=== PATIENT | male | born 1975 | race Caucasian/White ===

== ENCOUNTER 2021-04-15 20:20 | Inpatient (IN) | payer OTHER, MEDICARE ==
[~2021-04-15] VITALS: Ht 188 cm; Wt 120.0 kg
[2021-04-15 20:20] VITALS: BP 118/86
--- NOTE | 2021-04-15 20:20 | NUR ---
Received patient from [facility] ER via EMS to Room 408 per cart. Admitting diagnosis: Abdominal pain, leukocytosis and tachycardia. Patient c/o abdominal and pain behind umbilicus and nausea. Patient also c/o of increased anxiety. Patient is alert and oriented x4. Patient is allergic to latex and adhesive tape. CT Scan showed possible partial SBO. Patient c/o nausea (mild) and pain level is a 2/10 at this time. Will continue to monitor.
[2021-04-15] MEDS ORDERED: OXCA600T9 PO (21:58)
[2021-04-15] MEDS ORDERED: EVOL420W2 SQ (21:58)
[2021-04-15] MEDS ORDERED: TEST200V3 IM (21:58)
[2021-04-15] MEDS ORDERED: TRAZ-123 PO (21:58)
[2021-04-15] MEDS ORDERED: INSU100V37 SQ (21:58)
[2021-04-15] MEDS ORDERED: SILD50TA PO (21:58)
[2021-04-15] MEDS ORDERED: EMPA10TA PO (21:58)
[2021-04-15] MEDS ORDERED: MULT-245 PO (21:58)
[2021-04-15] MEDS ORDERED: OXCA300T19 PO (21:58)
[2021-04-15] MEDS ORDERED: BUPR150T21 PO (21:58)
[2021-04-15] MEDS ORDERED: INUL2TAB4 PO (21:58)
[2021-04-15] MEDS ORDERED: TIMO5DRO5 EACHEYE (21:58)
[2021-04-15] MEDS ORDERED: LORA0.5T96 PO ×2 (21:58)
[2021-04-15] MEDS ORDERED: oxyCODONE IR 5 MG TABLET PO PRN (22:15)
[2021-04-15] MEDS ORDERED: ZOLPIDEM 5 MG TABLET. PO PRN (22:15)
[2021-04-15] MEDS ORDERED: LIDO:MAALOX 1:1 20 ML SINGLE DOSE. PO PRN (22:15)
[2021-04-15] MEDS ORDERED: CALCIUM CARBONATE 500 MG TAB.CHEW PO PRN (22:15)
[2021-04-15] MEDS ORDERED: PIP/TAZO PER PHARMACY MC PRN (22:15)
[2021-04-15] MEDS ORDERED: PROCHLORPERAZINE 10 MG/2 ML VIAL. IVP PRN (22:15)
[2021-04-15] MEDS ORDERED: ELECTROLYTE (NON-ICU) PROTOCOL. MC PRN (22:15)
[2021-04-15] MEDS ORDERED: ACETAMINOPHEN 325 MG TABLET. PO PRN (22:15)
[2021-04-15] MEDS ORDERED: MORPHINE SULFATE 2 MG/ML INJ. IV PRN ×2 (22:15)
[2021-04-15] MEDS ORDERED: LORazepam 0.5 MG TABLET PO PRN (22:15)
[2021-04-15] MEDS ORDERED: ONDANSETRON PF 4 MG/2 ML VIAL. IVP PRN (22:15)
[2021-04-15] MEDS ORDERED: METOPROLOL IV PUSH 5 MG/5 ML VIAL. IVP PRN (22:15)
[2021-04-15 23:00] VITALS: BP 121/69
[2021-04-16] VITALS (7 sets, daily range): BP systolic 97–121; BP diastolic 53–73
[2021-04-16] MEDS: SENNOSIDES/DOCUSATE 8.6/50MG TABLET. PO SCH ×3 (00:02→21:00)
[2021-04-16] MEDS: traZODone 100 MG TABLET. PO SCH ×2 (00:02→21:55)
[2021-04-16] MEDS: OXcarbazepine 300 MG TABLET PO SCH ×3 (00:03→21:56)
[2021-04-16] MEDS: PIPERACILLIN/TAZOBACTAM 3.375 GM in IV NORMAL SALINE 50ML 50 ML IV SCH ×4 (00:08→17:42)
[2021-04-16] MEDS: TIMOLOL 0.5% OPHTH SOLUTION 5ML BOTTLE. OU SCH ×3 (00:10→08:38)
[2021-04-16] MEDS: HEPARIN for SUB-Q USE 5,000 UNIT/ML VIAL. SQ SCH ×4 (00:16→21:59)
[2021-04-16 03:02] LABS: BASO % 0 % (0-3); EOS % 1 % (0-3); HEMOGLOBIN 16.1 g/dL (13.0-17.5); LYMPH # 0.9 x10^3/uL (1.0-4.8); LYMPH % 12 % (24-48); MEAN CORPUSCULAR HEMOGLOBIN 30 pg (25-35); MEAN CORPUSCULAR HGB CONC 34 g/dL (31-37); MEAN CORPUSCULAR VOLUME 89 fL (79-100); MONO # 0.7 x10^3/uL (0.0-1.1); MONO % 10 % (0-9); NEUT # 5.7 x10^3/uL (1.8-7.7); NEUT % 77 % (31-73); PLATELET COUNT 259 x10^3/uL (140-400); RED BLOOD COUNT 5.38 x10^6/uL (4.30-5.70); WHITE BLOOD COUNT 7.4 x10^3/uL (4.0-11.0)
[2021-04-16 03:18] LABS: ALBUMIN 3.2 g/dL (3.4-5.0); CALCIUM 7.6 mg/dL (8.5-10.1); GFR 80.4; POTASSIUM 3.5 mmol/L (3.5-5.1); TOTAL BILIRUBIN 0.4 mg/dL (0.2-1.0); TOTAL PROTEIN 6.3 g/dL (6.4-8.2)
[2021-04-16 03:19] LABS: CHOLESTEROL/HDL RATIO 3.6
[2021-04-16] MEDS ORDERED: buPROPion XL 150 MG TAB.ER.24H. PO SCH (08:00)
[2021-04-16] MEDS: PANTOPRAZOLE 40 MG TABLET.DR. PO SCH (08:29)
[2021-04-16] MEDS ORDERED: FLU VACC QUAD 21-22 (6MOS+) PF 0.5 ML SYRINGE. VAX IM ONE (09:00)
[2021-04-16 09:14] LABS: BILIRUBIN,URINE NEGATIVE (NEG); CLARITY,URINE CLEAR; COLOR,URINE YELLOW; NITRITE,URINE NEGATIVE (NEG); PROTEIN,URINE NEGATIVE (NEG-TRACE); UROBILINOGEN,URINE 0.2 mg/dL (0.2 mg/dL)
[2021-04-16 09:35] LABS: BACTERIA,URINE 0 /HPF (0-FEW); RBC,URINE 0 /HPF (0-2); WBC,URINE 0 /HPF (0-4)
--- NOTE | 2021-04-16 10:18 | NUR ---
Dr. Recinos gave order to DC Wellbutrin 75mg and start 150mg daily d/t unable to cut ER in half
--- NOTE | 2021-04-16 10:19 | PDOC2 ---
GI CONSULT Date of Service: DATE: 04/16/21 TIME: 10:19 Reason For Consult: abd pain HPI: HPI: 45 y/o male sent from [facility]. Onset for mid abdominal pain "like a needle to the navel" on Monday. Associated w/ "just not feeling well" and fever, also nausea and diarrhea. Possibly precipitated by eating bad shrimp the night before but no one else got sick. Similar symptoms in the past w/ pancreatitis caused by hypertriglyceridemia so he wanted to be checked out. No pain this morning, has tolerated clear liquids and would like to advance diet. He told me last stool occurred overnight but reported to Dr. Calderon that diarrhea was ongoing this morning. Occasional reflux - takes Tums PRN. No dysphagia, hematemesis, hematochezia, melena, or change in weight. Unsure if has had previous EGD. Has a colonoscopy every three years (?in [place]) due to FH of CRC and personal h/o polyps - last was in 2019. S/p cholecystectomy, h/o YUSUF. No PUD history. Takes ibuprofen PRN. Viral Hep panel is negative here. Used to work with elderly people as a caregiver, on medical leave for a couple months. CT @ [facility] showed a couple mildly dilated proximal SB loops with more distal decompression, fatty liver, and unremarkable pancreas. Noted appendix upper limits of normal without adjacent inflammatory changes. PMH: PMH: HTN, KELLEY (no longer needs CPAP w/ intentional weight loss), anxiety, bipolar cholecystectomy, vasectomy, 9 right eye surgeries, right rotator cuff repair, tonsillectomy FH: Family History: Cancer (many paternal relatives with colon cancer diagnosed in their 30s) Social History: ALCOHOL: occassional (hobbies include aging whiskey) ROS: GEN: +fever HEENT: Denies blurred vision, sore throat CV: Denies chest pain RESP: Denies shortness of air, cough GI: Per HPI : Denies hematuria, dysuria ENDO: Denies weight changes NEURO: Denies confusion, dizziness MSK: +right shoulder pain/recent surgery SKIN: Denies jaundice, pruritus Vitals: Vitals: Vital Signs Date Time Temp Pulse Resp B/P (MAP) Pulse Ox O2 Delivery O2 Flow Rate FiO2 04/16/21 07:15 98.0 106 18 112/69 (83) 95 Room Air 98.0 Labs: Labs: Laboratory Tests Test 04/16/21 02:30 04/16/21 08:20 04/16/21 08:37 White Blood Count 7.4 x10^3/uL (4.0-11.0) Red Blood Count 5.38 x10^6/uL (4.30-5.70) Hemoglobin 16.1 g/dL (13.0-17.5) Hematocrit 48.0 % (39.0-53.0) Mean Corpuscular Volume 89 fL (79-100) Mean Corpuscular Hemoglobin 30 pg (25-35) Mean Corpuscular Hemoglobin Concent 34 g/dL (31-37) Red Cell Distribution Width 14.0 % (11.5-14.5) Platelet Count 259 x10^3/uL (140-400) Neutrophils (%) (Auto) 77 % (31-73) Lymphocytes (%) (Auto) 12 % (24-48) Monocytes (%) (Auto) 10 % (0-9) Eosinophils (%) (Auto) 1 % (0-3) Basophils (%) (Auto) 0 % (0-3) Neutrophils # (Auto) 5.7 x10^3/uL (1.8-7.7) Lymphocytes # (Auto) 0.9 x10^3/uL (1.0-4.8) Monocytes # (Auto) 0.7 x10^3/uL (0.0-1.1) Eosinophils # (Auto) 0.0 x10^3/uL (0.0-0.7) Basophils # (Auto) 0.0 x10^3/uL (0.0-0.2) Sodium Level 136 mmol/L (136-145) Potassium Level 3.5 mmol/L (3.5-5.1) Chloride Level 103 mmol/L (98-107) Carbon Dioxide Level 26 mmol/L (21-32) Anion Gap 7 (6-14) Blood Urea Nitrogen 14 mg/dL (8-26) Creatinine 1.0 mg/dL (0.7-1.3) Estimated GFR (Cockcroft-Gault) 80.4 BUN/Creatinine Ratio 14 (6-20) Glucose Level 154 mg/dL (70-99) Calcium Level 7.6 mg/dL (8.5-10.1) Iron Level 40 ug/dL (65-175) Total Iron Binding Capacity 267 ug/dL (250-450) Iron Saturation 15 % (15-34) Total Bilirubin 0.4 mg/dL (0.2-1.0) Aspartate Amino Transf (AST/SGOT) 17 U/L (15-37) Alanine Aminotransferase (ALT/SGPT) 30 U/L (16-63) Alkaline Phosphatase 49 U/L (46-116) Total Protein 6.3 g/dL (6.4-8.2) Albumin 3.2 g/dL (3.4-5.0) Albumin/Globulin Ratio 1.0 (1.0-1.7) Triglycerides Level 177 mg/dL (0-150) Cholesterol Level 112 mg/dL (0-200) LDL Cholesterol, Calculated 46 mg/dL (0-100) VLDL Cholesterol, Calculated 35 mg/dL (0-40) Non-HDL Cholesterol Calculated 81 mg/dL (0-129) HDL Cholesterol 31 mg/dL (40-60) Cholesterol/HDL Ratio 3.6 Lipase 181 U/L (73-393) Thyroid Stimulating Hormone (TSH) 1.975 uIU/mL (0.358-3.74) Hepatitis A IgM Antibody Nonreactive (Nonreactive) Hepatitis B Surface Antigen Nonreactive (Nonreactive) Hepatitis B Core IgM Antibody Nonreactive (Nonreactive) Hepatitis C IgG Antibody Nonreactive (Nonreactive) Urine Collection Type Unknown Urine Color Yellow Urine Clarity Clear Urine pH 6.0 (<5.0-8.0) Urine Specific [place] >=1.030 (1.000-1.030) Urine Protein Negative mg/dL (NEG-TRACE) Urine Glucose (UA) >=1000 mg/dL (NEG) Urine Ketones (Stick) 15 mg/dL (NEG) Urine Blood Negative (NEG) Urine Nitrite Negative (NEG) Urine Bilirubin Negative (NEG) Urine Urobilinogen Dipstick 0.2 mg/dL (0.2 mg/dL) Urine Leukocyte Esterase Negative (NEG) Urine RBC 0 /HPF (0-2) Urine WBC 0 /HPF (0-4) Urine Squamous Epithelial Cells Few /LPF Urine Bacteria 0 /HPF (0-FEW) Glucose (Fingerstick) 159 mg/dL (70-99) Allergies: Coded Allergies: adhesive tape (Verified Allergy, Intermediate, Itching, 04/15/21) latex (Verified Allergy, Intermediate, 04/15/21) Medications: Current Medications Medications (Trade) Dose Ordered Sig/Jacquie Route PRN Reason Start Time Stop Time Status Last Admin Dose Admin Oxcarbazepine (Trileptal) 300 mg DAILY PO 04/16/21 09:00 04/16/21 08:29 Timolol Maleate (Timoptic 0.5% Ophth) 1 drop BID OU 04/15/21 23:00 04/16/21 08:38 Trazodone HCl (Desyrel) 100 mg QHS PO 04/15/21 23:00 04/16/21 00:02 Oxcarbazepine (Trileptal) 600 mg HS PO 04/15/21 23:00 04/16/21 00:03 Piperacillin Sod/ Tazobactam Sod 3.375 gm/Sodium Chloride 50 ml @ 100 mls/hr Q6HRS IV 04/16/21 00:00 04/16/21 06:28 Pantoprazole Sodium (Protonix) 40 mg DAILYAC PO 04/16/21 07:30 04/16/21 08:29 Senna/Docusate Sodium (Senna Plus) 1 tab BID PO 04/15/21 23:00 04/16/21 08:29 Heparin Sodium (Porcine) (Heparin Sodium) 5,000 unit Q8HRS SQ 04/15/21 23:00 04/16/21 06:31 PE: GEN: NAD HEENT: Atraumatic, PERRL LUNGS: CTAB HEART: RRR ABD: quiet BS, soft, large, non-tender EXTREMITY: No edema SKIN: No rashes, no jaundice NEURO/PSYCH: A & O 3 A/P: A/P: Abd pain, nausea, diarrhea, ?fever - improving Abnormal CT - a couple mildly dilated proximal SB loops with more distal decompression Occasional acid reflux CRC screen, h/o polyps, FH CRC H/o pancreatitis/hypertirglyceridemia S/p cholecystectomy Fatty liver Rapid COVID negative @ [facility] -- Unclear cause of symptoms but quick resolution. Okay to ADAT and consider DC soon if tolerates. Check stool studies if diarrhea ongoing. NITIN MCFARLANE Apr 16, 2021 10:19
--- NOTE | 2021-04-16 12:06 | SSS ---
ADMIT DATE: 04/16/2021 ADMISSION DIAGNOSIS: Partial small-bowel obstruction. DISCHARGE DIAGNOSES: Resolving small-bowel obstruction, history of diabetes, history of glaucoma, obstructive sleep apnea, hypertension, anxiety, bipolar, cholecystectomy, vasectomy, 9 eye surgeries, rotator cuff surgery, tonsillectomy. ALLERGIES: ADHESIVE AND LATEX. FAMILY HISTORY: Diabetes. SOCIAL HISTORY: Does not drink, smoke or take drugs. He is . He is disabled currently. MEDICATIONS: Reviewed. Please refer the MRAD. REVIEW OF SYSTEMS: GENERAL: No history of weight change, weakness or fevers. SKIN: No bruising, hair changes or rashes. EYES: No blurred, double or loss of vision. NOSE AND THROAT: No history of nosebleeds, hoarseness or sore throat. HEART: No history of palpitations, chest pain or shortness of breath on exertion. LUNGS: Denies cough, hemoptysis, wheezing or shortness of breath. GASTROINTESTINAL: Denies changes in appetite, nausea, vomiting, diarrhea or constipation. GENITOURINARY: No history of frequency, urgency, hesitancy or nocturia. NEUROLOGIC: Denies history of numbness, tingling, tremor or weakness. PSYCHIATRIC: No history of panic, anxiety or depression. ENDOCRINE: No history of heat or cold intolerance, polyuria or polydipsia. EXTREMITIES: Denies muscle weakness, joint pain, pain on walking or stiffness. PHYSICAL EXAMINATION: VITALS: Within normal limits and are stable. GENERAL: No apparent distress. Alert and oriented. HEENT: Normal cephalic atraumatic, external auditory canals are patent EYES: Extraocular muscles are intact, pupils are equally round and reactive to light and accommodation MUSKULOSKELETAL: Well developed, well nourished, good range of motion ENDOCRINE: No thyromegaly was palpated LYMPHATICS: No cervical chain or axillary nodes were noted HEMATOPOIETIC: No bruising NECK: Supple, no JVD, no thyromegaly was noted. LUNGS: Clear to auscultation in all lung lawrence without rhonchi or wheezing. HEART: RRR, S1, S2 present. Peripheral pulses intact, no obvious murmurs were noted. ABDOMEN: Soft, nontender. Positive bowel sounds no organomegaly, normal bowel sounds. EXTREMITIES: Without any cyanosis, clubbing, or edema. Pedal pulses intact, Homans sign is negative. NEUROLOGIC: Normal speech, normal tone. A and O x 3, moves all extremities, no obvious focal deficits. PSYCHIATRIC: Normal affect, normal mood. Stable. SKIN: No ulcerations or rashes, good skin turgor, no jaundice. VASCULAR: Good capillary refill, neurovascular bundle appears to be intact. White count 7. Electrolytes are normal. Urinalysis is negative. Hepatitis panel is negative. ASSESSMENT AND PLAN: Resolving small-bowel obstruction. We will advance diet as tolerated. We did consult GI, they agree. If he tolerates his diet, we plan to discharge this afternoon. DISPOSITION: Home. ACTIVITY: As tolerated. DIET: Low sodium. MEDICATIONS: Please see the MRAD. Total time 34 minutes. JOSEE/RAMAN DR: JOSEE/sudarshan TID: [id number]
[2021-04-16] MEDS: buPROPion XL 150 MG TAB.ER.24H. PO SCH (12:53)
--- NOTE | 2021-04-16 13:58 | NUR ---
SW following. Discussed with RN, pt from home with , room air, clear liquid diet. Possible SBO. RN advised no SW needs at this time. SW will continue to follow.
[2021-04-17 00:13] LABS: HEMOGLOBIN A1C 8.5 % (4.8-5.6)
[2021-04-17] MEDS: PIPERACILLIN/TAZOBACTAM 3.375 GM in IV NORMAL SALINE 50ML 50 ML IV SCH ×2 (00:42→06:14)
[2021-04-17 03:10] VITALS: BP 109/70
[2021-04-17] MEDS: HEPARIN for SUB-Q USE 5,000 UNIT/ML VIAL. SQ SCH (06:18)
[2021-04-17 07:00] VITALS: BP 101/70
[2021-04-17] MEDS: OXcarbazepine 300 MG TABLET PO SCH (08:32)
[2021-04-17] MEDS: PANTOPRAZOLE 40 MG TABLET.DR. PO SCH (08:32)
[2021-04-17] MEDS: buPROPion XL 150 MG TAB.ER.24H. PO SCH (08:33)
[2021-04-17] MEDS: SENNOSIDES/DOCUSATE 8.6/50MG TABLET. PO SCH (08:33)
[2021-04-17] MEDS: TIMOLOL 0.5% OPHTH SOLUTION 5ML BOTTLE. OU SCH (08:33)
--- NOTE | 2021-04-17 10:45 | DISCH ---
DISCHARGE INSTRUCTIONS Condition on Discharge Condition on Discharge: Stable Activity After Discharge Activity Instructions for Disc: No restrictions Contacting the DR. after DC Call your doctor for: If your condition worsens CAROLINA HUBBARD MD Apr 17, 2021 10:45
--- NOTE | 2021-04-17 10:53 | PDOC ---
GENERAL General: Discharge summary [id number] VITAL SIGNS Vital Signs/I&O: Vital Signs Date Time Temp Pulse Resp B/P (MAP) Pulse Ox O2 Delivery O2 Flow Rate FiO2 04/17/21 07:00 97.8 92 18 101/70 (80) 94 Room Air 97.8 I & O 04/16/21 04/16/21 04/17/21 15:00 23:00 07:00 Intake Total 400 ml 300 ml 240 ml Output Total 250 ml Balance 400 ml 300 ml -10 ml ALLERGIES Allergies: Allergies Coded Allergies Type Severity Reaction Last Updated Verified adhesive tape Allergy Intermediate Itching 04/15/21 Yes latex Allergy Intermediate 04/15/21 Yes LAB Lab: Laboratory Tests Test 04/16/21 12:21 04/16/21 16:59 04/16/21 21:35 04/17/21 08:10 Glucose (Fingerstick) 115 mg/dL (70-99) H 152 mg/dL (70-99) H 159 mg/dL (70-99) H 166 mg/dL (70-99) H Justifications for Admission Other Justification CAROLINA HUBBARD MD Apr 17, 2021 10:53
[2021-04-17 11:00] VITALS: BP 109/75
--- NOTE | 2021-04-17 12:21 | NUR ---
patient discharged home with at 1205, taken down in wheelchair. Pt. discharged with personal belongings and instructions.
--- NOTE | 2021-04-18 03:48 | DS ---
DATE OF DISCHARGE: 04/17/2021 HOSPITAL COURSE: This patient is a 45-year-old man who is a continuity outpatient of Dr. Queenie Martinez, who uses the [facility] hospitalist here at [facility], I am rounding for them this weekend. The patient was transferred in from [facility] 48 hours ago with severe yellowish diarrhea with incontinence for several days prior to admission. He tells me that when he presented to [facility] Emergency Department, he also had a fever and chills. COVID test was reportedly negative there, not repeated here. He has been vaccinated for COVID in November finished both Moderna vaccines and tolerated well. He never had COVID to his knowledge. The patient has a long and complex medical history after multiple concussions and eye surgeries in the past that kept him somewhat debilitated. He has been out on medical leave for right rotator cuff repair of the last few months. 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 He lives with his and she has been feeling fine. He tells me that he feels ready for discharge. He is tolerating his diet. He was seen by Gastroenterology yesterday and cleared for discharge as long as he is tolerating his diet. He needs close outpatient followup. He was finally able to leave a stool specimen here last night and those results are pending. PHYSICAL EXAMINATION: VITAL SIGNS: This morning is notable for that the patient has been afebrile. Blood pressure has been in the low 100s/50s, heart rate is in the 90s and regular. He is breathing comfortably and saturating normally on room air. GENERAL: He is a pleasant 45-year-old male, alert and oriented x 3, no acute distress. HEENT: Unremarkable for acute abnormality. NECK: Soft and supple. No adenopathy or thyromegaly noted. CHEST: Clear to auscultation. HEART: S1, S2 normal. Regular rate and rhythm. No murmurs or gallops are noted. ABDOMEN: Soft, nontender, nondistended. No masses or organomegaly noted. EXTREMITIES: Unremarkable. Greater than 30 minutes were spent on coordinating this discharge with greater than 50% in counseling and coordination of care, most of which in discussion with patient and nursing. FINAL DIAGNOSES: 1. Acute diarrhea, of unclear etiology. Stool culture is pending. 2. Stool incontinence secondary to above. 3. Question of partial small-bowel obstruction on CAT scan from [facility]. The patient is now tolerating diet that appears to be resolved. 4. Chronic multimorbidity otherwise as outlined in the history and physical. EZEKIEL DR: Laura TID: [id number] CC: QUEENIE MARTINEZ
== END 2021-04-17 12:05 | disposition home or self-care (01) | DRG 392 ==
LOC: 4 NORTH 20:20
PROVIDERS: ADMIT Student in an Organized Health Care Education/Training Program; ATTEND Student in an Organized Health Care Education/Training Program
DX: A08.4 Viral intestinal infection, unspecified (principal); K56.600 Partial intestinal obstruction, unspecified as to cause; E11.9 Type 2 diabetes mellitus without complications; F31.9 Bipolar disorder, unspecified; G47.33 Obstructive sleep apnea (adult) (pediatric); I10 Essential (primary) hypertension; K21.9 Gastro-esophageal reflux disease without esophagitis; Z20.822 Contact with and (suspected) exposure to COVID-19; Z80.0 Family history of malignant neoplasm of digestive organs; Z83.3 Family history of diabetes mellitus; Z86.16 Personal history of COVID-19; Z90.49 Acquired absence of other specified parts of digestive tract; F41.9 Anxiety disorder, unspecified; K76.0 Fatty (change of) liver, not elsewhere classified; Z88.8 Allergy status to other drugs, medicaments and biological substances; Z91.040 Latex allergy status; R15.9 Full incontinence of feces
CPT/HCPCS: 36415; 80053; 80061; 81001; 82962; 83036; 83540; 83550; 83690; 84443; 85025; 86705; 86709; 86803; 87040; 87340; 87493; 87505; 90471; 90686; J1644; J2405; J2543; G0378